=== PATIENT | male | born 1965 | race Caucasian/White ===

== ENCOUNTER 2024-06-09 06:16 | Day surgery (SDC) | payer BC, SELFPAY ==
[2024-06-09 08:21] VITALS: BP 140/88
[2024-06-09 08:33] VITALS: BMI 26.0
[2024-06-09 08:40] VITALS: BMI 26.0
[2024-06-09 11:24] VITALS: BP 103/67
[2024-06-09 11:30] VITALS: BP 113/75
[2024-06-09 11:45] VITALS: BP 112/76
[2024-06-09 11:57] VITALS: BP 115/94
== END 2024-06-09 12:26 | disposition home or self-care (01) ==
LOC: SDS 06:16
PROVIDERS: ATTENDING PHYSICIAN Internal Medicine Gastroenterology
DX: D12.3 Benign neoplasm of transverse colon (principal); D12.8 Benign neoplasm of rectum; K64.0 First degree hemorrhoids
CPT/HCPCS: 45390; 45385; 88305